=== PATIENT | female | born 1990 | race Caucasian/White ===

== ENCOUNTER 2020-08-31 04:15 | Emergency (ER) | payer SELFPAY ==
[~2020-08-31] VITALS: Ht 157.5 cm; Wt 47.2 kg
--- NOTE | 2020-08-31 04:30 | NUR ---
LEW JOHNSON C/O ABDOMINAL PAIN RADIATING TO BACK SINCE AM. DENIES N/V. PATINET A/OX 4, RR EVEN AND UNLABORED, NO SOB NOTED. PATIENT CONNECETED TO MONITOR, VSS. IV ACCESS ESTABLISHED LAC 18G, BLOOD WORK DRAWN, SENT TO LAB. WILL CONTINUE TO MONITOR.
[2020-08-31 04:36] LABS: BASOPHILS # (AUTO) 0.1 /CMM (0.0-0.2); EOSINOPHILS % (AUTO) 2.8 % (0.0-6.0); HEMATOCRIT 40 % (33-45); HEMOGLOBIN 13.5 g/dL (11.5-14.8); LYMPHOCYTES # (AUTO) 2.4 /CMM (0.8-4.8); LYMPHOCYTES % (AUTO) 37.2 % (20.0-44.0); MEAN CORPUSCULAR HGB CONC 34 g/dl (31.0-36.0); MEAN CORPUSCULAR VOLUME 95 fL (82-100); MONOCYTES # (AUTO) 0.4 /CMM (0.1-1.30); MONOCYTES % (AUTO) 6.1 % (2.0-12.0); NEUTROPHILS # (AUTO) 3.5 /CMM (1.8-8.9); NEUTROPHILS % (AUTO) 52.9 % (43.0-81.0); PLATELET COUNT (AUTO) 349 /CMM (150-450); RED BLOOD CELL COUNT(AUTO) 4.22 MIL/uL (4.0-5.2); WHITE BLOOD COUNT (AUTO) 6.6 K/uL (4.3-11.0)
[2020-08-31] MEDS ORDERED: ONDANSETRON HCL/PF 4 MG/2 ML VIAL ONE (04:38)
[2020-08-31] MEDS ORDERED: MORPHINE SULFATE INJ 4 MG/ML DISP.SYRIN ONE (04:38)
[2020-08-31] MEDS: IV NS 0.9% 1,000 ML IV ONE (04:48)
[2020-08-31 04:49] LABS: BILIRUBIN,DIRECT 0.1 mg/dL (0.0-0.2); BILIRUBIN,TOTAL 0.4 mg/dL (0.2-1.0); CALCIUM, SERUM 9.2 mg/dL (8.5-10.1); CREATININE 0.7 mg/dL (0.6-1.3); POTASSIUM 3.9 mmol/L (3.5-5.1); TOTAL PROTEIN, SERUM 7.8 g/dL (6.4-8.2)
[2020-08-31] MEDS: MORPHINE SULFATE INJ 2 MG/ML DISP.SYRIN IV ONE (04:49)
[2020-08-31] MEDS: ONDANSETRON HCL/PF 4 MG/2 ML VIAL IV ONE (04:49)
--- NOTE | 2020-08-31 05:39 | NUR ---
URINE COLLECETED AND SENT TO LAB.
[2020-08-31 05:43] LABS: BILIRUBIN,URINE Negative (NEGATIVE); COLOR,URINE YELLOW (YELLOW); LEUKOCYTE ESTERASE ,URINE Small (NEGATIVE); NITRITE, URINE Negative (NEGATIVE); PROTEIN,URINE Negative (NEGATIVE); UGLUCOSE Negative (NEGATIVE); UROBILINOGEN,URINE 0.2 EU/dL (0.2)
[2020-08-31 06:01] LABS: BACTERIA,URINE Moderate /HPF (None Seen); SQUAMOUS EPITHELIAL CELL,UR Few /HPF (None Seen); WBC,URINE TOO NUMEROUS TO COUN /HPF (0-3)
--- NOTE | 2020-08-31 06:14 | NUR ---
PATIENT RETURNED FROM CT
[2020-08-31] MEDS ORDERED: SULF1TAB48 PO (06:59)
[2020-08-31] MEDS ORDERED: PHEN99.5 PO (07:41)
[2020-08-31] MEDS ORDERED: DICY10CA37 PO (07:41)
--- NOTE | 2020-08-31 08:03 | NUR ---
PATIENT A/OX4, BREATHING EVEN AND UNLABORED, NO SOB NOTED. NEEDS ATTENDED. KEPT COMFORTABLE. IV removed. Catheter intact and site benign. Pressure and 4x4 applied to site. No bleeding noted. Patient discharged to home in stable condition. Written and verbal after care instructions given. Patient verbalizes understanding of instruction.
[2020-08-31 08:07] VITALS: BP 112/72
== END 2020-08-31 08:07 | disposition home or self-care (01) ==
LOC: ER 05:17
DX: N12 Tubulo-interstitial nephritis, not specified as acute or chronic (principal); K52.9 Noninfective gastroenteritis and colitis, unspecified; F17.200 Nicotine dependence, unspecified, uncomplicated; Z79.899 Other long term (current) drug therapy
CPT/HCPCS: 36415; 74176; 80048; 80076; 81001; 83690; 84703; 85025; 87086; 96361; 96374; 96375; 99284; 99406; J2270; J2405